=== PATIENT | female | born 1955 | race Caucasian/White ===

== ENCOUNTER 2017-04-06 14:26 | Emergency (ER) | payer SELFPAY ==
[2017-04-06 14:27] VITALS: BP 167/86; PULSE 106; RESP 14; TEMP 97.8; O2SAT 97
[2017-04-06] MEDS ORDERED: ACETAMINOPHEN/HYDROcodone 325 MG/5 MG TAB PO ONE (15:45)
--- NOTE | 2017-04-06 15:46 | PD ---
HPI Chief Complaint: Musculoskeletal Complaint Time Seen by Provider: 15:20 Travel History International Travel<30 days: No Contact w/Intl Traveler<30days: No Traveled to known affect area: No History of Present Illness HPI 61-year-old right-hand dominant female presents to ED for evaluation 10 left elbow pain. Onset round 10:30 AM after [place] patient [place] the beach. Pain is constant, worsened by range of motion. She denies numbness, tingling, weakness of the extremity. She endorses limitations to range of motion motion secondary to pain. She's never injured this area before. She states that she treated at home with ice with no improvement in symptoms which prompted her to seek evaluation at the ED. [facility] Past Medical History Medical History: Denies Significant Hx Tetanus Vaccination: Unknown Past Surgical History Surgical History: No Previous Surgery Social History Alcohol Use: No Tobacco Use: Yes Substance Use: No Allergies-Medications (Allergen,Severity, Reaction): Coded Allergies: No Known Allergies (Unverified , 04/06/17) Reported Meds & Prescriptions Reported Meds & Active Scripts Active No Active Prescriptions or Reported Medications Review of Systems Except as stated in HPI: all other systems reviewed are Neg Physical Exam Narrative GENERAL: Well-nourished, well-developed white female in no acute distress. SKIN: Focused skin assessment warm/dry. HEAD: Normocephalic. EYES: No scleral icterus. No injection or drainage. NECK: Supple, trachea midline. No JVD or lymphadenopathy. CARDIOVASCULAR: Regular rate and rhythm without murmurs, gallops, or rubs. RESPIRATORY: Breath sounds equal bilaterally. No accessory muscle use. GASTROINTESTINAL: Abdomen soft, non-tender, nondistended. MUSCULOSKELETAL: No cyanosis, or edema. FOCUSED LEFT UPPER EXTREMITY EXAM: 2+ radial pulse. Strong manager furniture strength. Tender to palpation of the radial head. Patient is unable to extend to 0. Neurovascularly intact distally. BACK: Nontender without obvious deformity. No CVA tenderness. Data Data Last Documented VS Vital Signs Date Time Temp Pulse Resp B/P (MAP) Pulse Ox O2 Delivery O2 Flow Rate FiO2 04/06/17 14:27 97.8 106 14 167/86 (113) 97 Orders Orders Elbow, Complete (4 Vws) (04/06/17 ) Acetamin-Hydrocod 325-5 Mg ([place] 5-325 (04/06/17 15:45) Sling Cradle Arm (04/06/17 ) Ed Discharge Order (04/06/17 16:31) [facility] [place] Medical Decision Making Medical Screen Exam Complete: Yes Emergency Medical Condition: Yes Differential Diagnosis Contusion versus fracture versus dislocation versus other Narrative Course 61-year-old right-hand dominant female presents to ED for evaluation 11/05 left elbow pain. Onset round 10:30 AM after the patient fell [place] the beach. She endorses limitations to range of motion motion secondary to pain. She tried treating with ice and had no improvement so decided to come to the ED. Vitals reviewed. Physical exam reveals a pleasant white female in no acute distress. Chest tenderness to palpation of the radial head and is unable to extend the arm to 0. Exam otherwise unremarkable. Ice pack was applied. Patient was administered 5 mg Lortab by mouth. X-rays reveal no obvious fracture but there is a definitive sale sign. This is fracture of the radial head. Patient is provided a sling. She is visiting from [place] and states she will follow up with an orthopedist when she returns in a few days. She is instructed to use OTC medications as prescribed on the label, limit use of the arm until cleared by the orthopedist. She indicated understanding of the instructions. She is stable and discharged home. Diagnosis Primary Impression: Fracture of radial head, left, closed Qualified Codes: S52.125A - Nondisplaced fracture of head of left radius, initial encounter for closed fracture Referrals: Robert Hampton MD Patient Instructions: Elbow Fracture (ED), General Instructions Additional Instructions: Rest, ice, elevate the extremity. Apply ice no longer than 10-15 minutes per hour a few times a day. 800 mg ibuprofen up to 3 times a day as needed for pain. Keep the arm in the sling except when showering until cleared by the orthopedist. Follow-up with Dr. Fontaine or the orthopedist of your choice this week. Return to the ED for any urgent or emergent medical condition. Scripts No Active Prescriptions or Reported Meds Disposition: 01 DISCHARGE HOME Condition: Stable Izabela Whitney Apr 06, 2017 15:46
--- NOTE | 2017-04-06 16:08 | RADRPT ---
EXAM DATE/TIME: 04/06/2017 15:30 [place] COMPARISON: No previous studies available for comparison. INDICATIONS : [place], pain in left elbow, pain is most severe when elbow is extended MEDICAL HISTORY : None. SURGICAL HISTORY : None. ENCOUNTER: Initial ACUITY: 1 day PAIN SCORE: 10/10 LOCATION: Left elbow FINDINGS: Extended 4 view examination of the left elbow was obtained. There is a fat-pad sign consistent with a joint effusion. There is mild degenerative change in the ulnar trochlear joint with slight spurring. Radial head appears intact with no visualized fracture. There is mild osteopenia. The soft tissues a re otherwise unremarkable. CONCLUSION: 1. Evidence of joint effusion with no visualized fracture. This is of concern for possible occult fra cture. 2. 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 Fausto Best MD on April 06, 2017 at 16:04 Board Certified Radiologist. This report was verified electronically.
== END 2017-04-06 17:06 | disposition home or self-care (01) ==
LOC: NEPK 14:26
DX: S52.125A Nondisplaced fracture of head of left radius, initial encounter for closed fracture (principal); W18.30XA Fall on same level, unspecified, initial encounter; Y92.832 Beach as the place of occurrence of the external cause
CPT/HCPCS: 73080; 99283